=== PATIENT | male | born 1960 | race Caucasian/White ===

== ENCOUNTER 2016-12-18 09:53 | Inpatient (IN) | payer BC ==
[~2016-12-18] VITALS: Ht 195.6 cm; Wt 130.9 kg
[~2016-12-18 09:53] MED LIST: ASPIRIN 81M81 MG/TA2 PO; CIPRO 500MG TA500 MG PO; COQ10150 MG PO; KLOR-CON 1010 MEQ PO; NATURAL MAGNES200 MG PO; PRINZIDE 12.5 M1 TA1 PO; PYRIDIUM 100MG100 MG PO; VITAMIN D31000 IU PO; ZOCOR 40MG40 MG PO
[2017-03-18 10:00] LABS: HEMATOCRIT 43.4 % (42.0-52.0); HEMOGLOBIN 14.1 g/dl (13.5-18.0); MEAN CELL VOLUME 94 fl (80.0-100.0); MEAN CORPUSCULAR HEMOGLOBIN 31 pg (27.0-31.0); MEAN CORPUSCULAR HGB CONC 33 g/dl (33.0-37.0); MEAN PLATELET VOLUME 10.8 fl (7.4-10.4); PLATELET COUNT 214 K/mm3 (130-400); RED BLOOD COUNT 4.63 M/mm3 (4.20-5.60); WHITE BLOOD COUNT 7.2 K/mm3 (4.8-10.8)
[2017-03-18 10:06] LABS: PROTHROMBIN TIME 11.3 SECONDS (9.7-12.8)
[2017-03-18 10:08] LABS: PARTIAL THROMBOPLASTIN TIME 30.9 SECONDS (26.0-37.0)
[2017-03-18 10:46] LABS: CALCIUM 9.8 mg/dL (8.4-10.2); CREATININE, serum 0.67 mg/dL (0.66-1.25); POTASSIUM 4.2 mmol/L (3.4-5.0)
[2017-03-19] VITALS (12 sets, daily range): BP systolic 104–167; BP diastolic 52–87; PULSE 55–88; TEMP 97–98.7
[2017-03-19] MEDS ORDERED: LOPRESSOR 225 MG/TAB PO (07:01)
[2017-03-19 13:50] LABS: HEMATOCRIT 33.9 % (42.0-52.0); HEMOGLOBIN 10.9 g/dl (13.5-18.0)
[2017-03-20] VITALS (8 sets, daily range): BP systolic 97–129; BP diastolic 57–78; PULSE 64–72; TEMP 97.9–98.6
[2017-03-20 05:05] LABS: MEAN CELL VOLUME 93 fl (80.0-100.0); MEAN CORPUSCULAR HGB CONC 32 g/dl (33.0-37.0); MEAN PLATELET VOLUME 10.4 fl (7.4-10.4); PLATELET COUNT 154 K/mm3 (130-400); RED BLOOD COUNT 3.38 M/mm3 (4.20-5.60); REDCELL DISTRIBUTION WIDTH-CV 14.1 % (11.5-14.5); WHITE BLOOD COUNT 6.8 K/mm3 (4.8-10.8)
[2017-03-20 05:12] LABS: HEMATOCRIT 31.5 % (42.0-52.0); HEMOGLOBIN 10.2 g/dl (13.5-18.0); MEAN CORPUSCULAR HEMOGLOBIN 30 pg (27.0-31.0)
[2017-03-20 05:15] LABS: CALCIUM 8.1 mg/dL (8.4-10.2); CREATININE, serum 0.73 mg/dL (0.66-1.25); POTASSIUM 3.8 mmol/L (3.4-5.0)
[2017-03-21 02:08] VITALS: BP 150/53; PULSE 59; TEMP 98.2
[2017-03-21 05:53] VITALS: BP 120/58; PULSE 65; TEMP 98.6
[2017-03-21 08:27] VITALS: BP 120/64; PULSE 61; TEMP 98.5
[2017-03-21 13:57] VITALS: BP 114/61; PULSE 57; TEMP 98.1
== END 2017-03-21 17:45 | disposition home or self-care (01) | DRG 708 ==
LOC: SURG 01-08 07:30 → INPTSU 03-19 05:53 → SURG 03-19 05:53
PROVIDERS: Urology
PROC: 0VT00ZZ Resection of Prostate, Open Approach (ICD-10-PCS; principal; 2017-03-19 07:30)
DX: C61 Malignant neoplasm of prostate (principal); Z95.1 Presence of aortocoronary bypass graft; I10 Essential (primary) hypertension; F17.210 Nicotine dependence, cigarettes, uncomplicated; I25.10 Atherosclerotic heart disease of native coronary artery without angina pectoris
CPT/HCPCS: A9284; J0330; J0690; J2250; J2270; J2405; J2704; J2710; J3010; J3480; J7120

== ENCOUNTER 2017-04-19 12:11 | Observation (INO) | payer BC ==
[~2017-04-19] VITALS: Ht 195.6 cm; Wt 130.2 kg
[~2017-04-19 12:11] MED LIST changes: +LOPRESSOR 225 MG/TAB PO
[2017-04-19] MEDS ORDERED: COUMADIN 1010 MG/TAB PO (12:21)
[2017-04-19] MEDS ORDERED: ZOCOR 20MG20 MG PO (12:21)
[2017-04-19 13:36] LABS: BASO # 0.1 (0.0-0.2); BASO % 0.8 % (0.0-2.0); EOS # 0.4 (0.0-0.7); EOS % 3.8 % (0-4.0); GRAN # 6.5 (1.4-6.5); GRAN % 66.7 % (42.2-75.2); HEMATOCRIT 42.1 % (42.0-52.0); HEMOGLOBIN 13.8 g/dl (13.5-18.0); LYMPH # 1.9 (1.2-3.4); MEAN CELL VOLUME 91 fl (80.0-100.0); MEAN CORPUSCULAR HEMOGLOBIN 30 pg (27.0-31.0); MEAN CORPUSCULAR HGB CONC 33 g/dl (33.0-37.0); MEAN PLATELET VOLUME 11.1 fl (7.4-10.4); MONO # 0.9 (0.1-0.6); MONO % 9.3 % (1.7-9.3); PLATELET COUNT 197 K/mm3 (130-400); RED BLOOD COUNT 4.65 M/mm3 (4.20-5.60); REDCELL DISTRIBUTION WIDTH-CV 14.1 % (11.5-14.5); WHITE BLOOD COUNT 9.8 K/mm3 (4.8-10.8)
[2017-04-19 13:47] LABS: INR 1.6 (0.8-3.0); PROTHROMBIN TIME 18.4 SECONDS (9.7-12.8)
[2017-04-19 13:49] LABS: ADJUSTED CALCIUM 9.6 mg/dL (8.4-10.2); ALBUMIN 4.2 gm/dL (3.5-5.0); BILIRUBIN,TOTAL 0.7 mg/dL (0.0-1.0); CALCIUM 9.8 mg/dL (8.4-10.2); CREATININE, serum 0.72 mg/dL (0.66-1.25); POTASSIUM 4.4 mmol/L (3.4-5.0); TOTAL PROTEIN 7.6 gm/dL (6.4-8.2)
[2017-04-19] MEDS ORDERED: NORCO 325 MG-51 TAB PO (16:29)
[2017-04-19] MEDS ORDERED: VALIUM 10MG10 MG/TAB PO (16:30)
[2017-04-19 16:43] VITALS: BP 133/71; PULSE 62; TEMP 98.6
[2017-04-19 19:37] VITALS: BP 152/75; PULSE 61; TEMP 98
[2017-04-19 22:22] VITALS: BP 158/90; PULSE 54; TEMP 97.6
[2017-04-20] VITALS (13 sets, daily range): BP systolic 138–172; BP diastolic 71–89; PULSE 57–74; TEMP 98–98.5
[2017-04-20] MEDS ORDERED: XARELTO15 MG PO ×2 (14:21→14:40)
[2017-04-20] MEDS ORDERED: XARELTO20 MG PO (14:23)
== END 2017-04-20 17:38 | disposition home or self-care (01) ==
LOC: COL.ER 12:11 → MEDICAL 14:38
PROVIDERS: Emergency Medicine
DX: I82.412 Acute embolism and thrombosis of left femoral vein (principal); I82.432 Acute embolism and thrombosis of left popliteal vein; Z95.1 Presence of aortocoronary bypass graft; C61 Malignant neoplasm of prostate; I10 Essential (primary) hypertension; E78.5 Hyperlipidemia, unspecified; Z86.718 Personal history of other venous thrombosis and embolism; Z79.01 Long term (current) use of anticoagulants; F41.9 Anxiety disorder, unspecified; F17.210 Nicotine dependence, cigarettes, uncomplicated; E66.9 Obesity, unspecified; I25.10 Atherosclerotic heart disease of native coronary artery without angina pectoris
CPT/HCPCS: C1725; C1757; C1769; C1887; C1894; G0378; J0360; J1644; J2250; J2997; J3010; J7030; Q9967

== ENCOUNTER 2017-05-08 14:41 | Inpatient (IN) | payer BC ==
[~2017-05-08] VITALS: Ht 182.9 cm; Wt 130.1 kg
[~2017-05-08 14:41] MED LIST changes: +COUMADIN 1010 MG/TAB PO; +NORCO 325 MG-51 TAB PO; +VALIUM 10MG10 MG/TAB PO; +XARELTO15 MG PO; +XARELTO20 MG PO; +ZOCOR 20MG20 MG PO
[2017-05-08 15:03] LABS: BASO # 0.1 (0.0-0.2); BASO % 1.1 % (0.0-2.0); EOS # 0.2 (0.0-0.7); EOS % 2.6 % (0-4.0); GRAN # 3.4 (1.4-6.5); HEMATOCRIT 40.3 % (42.0-52.0); HEMOGLOBIN 12.8 g/dl (13.5-18.0); LYMPH # 1.9 (1.2-3.4); LYMPH % 31.3 % (20.0-51.0); MEAN CELL VOLUME 92 fl (80.0-100.0); MEAN CORPUSCULAR HEMOGLOBIN 29 pg (27.0-31.0); MEAN CORPUSCULAR HGB CONC 32 g/dl (33.0-37.0); MEAN PLATELET VOLUME 10.6 fl (7.4-10.4); MONO # 0.5 (0.1-0.6); MONO % 8.7 % (1.7-9.3); PLATELET COUNT 242 K/mm3 (130-400); WHITE BLOOD COUNT 6.1 K/mm3 (4.8-10.8)
[2017-05-08 15:13] LABS: CREATININE, serum 0.69 mg/dL (0.66-1.25); INR 1.7 (0.8-3.0); PROTHROMBIN TIME 19.4 SECONDS (9.7-12.8)
[2017-05-08] MEDS ORDERED: XARELTO15 MG PO (16:14)
[2017-05-08 16:18] VITALS: BP 165/92; PULSE 47
[2017-05-08 17:44] VITALS: BP 169/88; PULSE 50; TEMP 98.4
[2017-05-08] MEDS ORDERED: AMOXICILLIN 50500 MG PO (18:40)
[2017-05-08 20:50] VITALS: BP 147/83; PULSE 52; TEMP 98.2
[2017-05-09 00:38] VITALS: BP 140/76; PULSE 50; TEMP 97.6
[2017-05-09 03:53] VITALS: BP 125/53; PULSE 70; TEMP 97.7
[2017-05-09 07:23] LABS: BASO # 0.1 (0.0-0.2); BASO % 1.3 % (0.0-2.0); EOS # 0.2 (0.0-0.7); GRAN # 3.7 (1.4-6.5); GRAN % 61.5 % (42.2-75.2); HEMATOCRIT 40.5 % (42.0-52.0); LYMPH # 1.5 (1.2-3.4); LYMPH % 25.5 % (20.0-51.0); MEAN CELL VOLUME 91 fl (80.0-100.0); MEAN CORPUSCULAR HEMOGLOBIN 29 pg (27.0-31.0); MEAN CORPUSCULAR HGB CONC 32 g/dl (33.0-37.0); MEAN PLATELET VOLUME 11.3 fl (7.4-10.4); MONO # 0.5 (0.1-0.6); MONO % 8.4 % (1.7-9.3); PLATELET COUNT 242 K/mm3 (130-400); RED BLOOD COUNT 4.47 M/mm3 (4.20-5.60)
[2017-05-09 07:40] VITALS: BP 147/78; PULSE 50; TEMP 97.6
[2017-05-09 07:40] LABS: CALCIUM 9.6 mg/dL (8.4-10.2); CREATININE, serum 0.75 mg/dL (0.66-1.25)
[2017-05-09 12:23] VITALS: BP 122/80; PULSE 52; TEMP 98.5
== END 2017-05-09 13:29 | disposition home or self-care (01) | DRG 254 ==
LOC: MEDICAL 14:41
PROVIDERS: Physician Assistant; Radiology Diagnostic Radiology
PROC: 06H03DZ Insertion of Intraluminal Device into Inferior Vena Cava, Percutaneous Approach (ICD-10-PCS; principal; 2017-05-08)
DX: I82.4Z2 Acute embolism and thrombosis of unspecified deep veins of left distal lower extremity (principal); I10 Essential (primary) hypertension; E78.5 Hyperlipidemia, unspecified; F17.210 Nicotine dependence, cigarettes, uncomplicated; R31.9 Hematuria, unspecified; Z95.1 Presence of aortocoronary bypass graft; Z85.46 Personal history of malignant neoplasm of prostate; Z79.01 Long term (current) use of anticoagulants
CPT/HCPCS: 99222-AI; 99232-AI; 99239; J2250; J3010; Q9967

== ENCOUNTER 2018-06-10 00:01 | Inpatient (IN) | payer BC ==
[~2018-06-10] VITALS: Ht 198.1 cm; Wt 132.9 kg
[2018-06-10] VITALS (794 sets, daily range): BP systolic 144–174; BP diastolic 87–106; PULSE 52–76; TEMP 97.5–99.2; O2SAT 60–100
[~2018-06-10 00:01] MED LIST changes: +AMOXICILLIN 50500 MG PO
[2018-06-10 00:21] LABS: BASO # 0.1 (0.0-0.2); BASO % 0.8 % (0.0-2.0); EOS # 0.2 (0.0-0.7); GRAN # 6.3 (1.4-6.5); GRAN % 70.6 % (42.2-75.2); HEMATOCRIT 47.1 % (42.0-52.0); HEMOGLOBIN 15.8 g/dl (13.5-18.0); LYMPH # 1.7 (1.2-3.4); LYMPH % 19.1 % (20.0-51.0); MEAN CELL VOLUME 93 fl (80.0-100.0); MEAN CORPUSCULAR HEMOGLOBIN 31 pg (27.0-31.0); MEAN CORPUSCULAR HGB CONC 34 g/dl (33.0-37.0); MEAN PLATELET VOLUME 10.7 fl (7.4-10.4); MONO # 0.7 (0.1-0.6); MONO % 7.3 % (1.7-9.3); PLATELET COUNT 197 K/mm3 (130-400); RED BLOOD COUNT 5.08 M/mm3 (4.20-5.60); REDCELL DISTRIBUTION WIDTH-CV 13.2 % (11.5-14.5)
[2018-06-10 00:46] LABS: ALBUMIN 4.3 gm/dL (3.5-5.0); BILIRUBIN,TOTAL 0.3 mg/dL (0.0-1.0); CALCIUM 10.2 mg/dL (8.4-10.2); CREATININE, serum 0.64 mg/dL (0.66-1.25); TOTAL PROTEIN 7.6 gm/dL (6.4-8.2)
[2018-06-10 00:46] LABS: INR 1.1 (0.8-3.0)
[2018-06-10 00:48] LABS: PARTIAL THROMBOPLASTIN TIME 39.5 SECONDS (26.0-37.0)
[2018-06-10] MEDS ORDERED: FLEXERIL 1010 MG/TAB PO (00:51)
[2018-06-10] MEDS ORDERED: COZAAR100 MG PO (00:52)
[2018-06-10] MEDS ORDERED: LOPRESSOR 550 MG/TAB PO (00:53)
[2018-06-10 01:06] LABS: TROPONIN-I 0.943 ng/mL (0.000-0.034)
[2018-06-10 03:55] LABS: BASO # 0.1 (0.0-0.2); BASO % 0.8 % (0.0-2.0); EOS # 0.2 (0.0-0.7); EOS % 1.7 % (0-4.0); GRAN # 6.3 (1.4-6.5); GRAN % 70.2 % (42.2-75.2); HEMATOCRIT 45.2 % (42.0-52.0); HEMOGLOBIN 14.9 g/dl (13.5-18.0); LYMPH # 1.9 (1.2-3.4); LYMPH % 20.8 % (20.0-51.0); MEAN CELL VOLUME 94 fl (80.0-100.0); MEAN CORPUSCULAR HEMOGLOBIN 31 pg (27.0-31.0); MEAN CORPUSCULAR HGB CONC 33 g/dl (33.0-37.0); MEAN PLATELET VOLUME 10.6 fl (7.4-10.4); MONO # 0.6 (0.1-0.6); MONO % 6.2 % (1.7-9.3); PLATELET COUNT 206 K/mm3 (130-400); RED BLOOD COUNT 4.81 M/mm3 (4.20-5.60); REDCELL DISTRIBUTION WIDTH-CV 13.3 % (11.5-14.5)
[2018-06-10 03:59] LABS: CALCIUM 9.7 mg/dL (8.4-10.2); CREATININE, serum 0.69 mg/dL (0.66-1.25); POTASSIUM 4.7 mmol/L (3.4-5.0)
[2018-06-10 04:10] LABS: TROPONIN-I 3 HR POST INITIAL 3.99 ng/mL (0.000-0.034)
[2018-06-10 09:18] LABS: CHOLESTEROL RISK RATIO 5.3
[2018-06-11] VITALS (435 sets, daily range): BP systolic 111–152; BP diastolic 70–90; PULSE 65–103; TEMP 97.8–99.2; O2SAT 93–100
[2018-06-11 06:07] LABS: BASO # 0.1 (0.0-0.2); BASO % 0.5 % (0.0-2.0); EOS # 0.1 (0.0-0.7); EOS % 0.9 % (0-4.0); GRAN # 7.9 (1.4-6.5); GRAN % 72.3 % (42.2-75.2); HEMOGLOBIN 15.4 g/dl (13.5-18.0); LYMPH # 1.7 (1.2-3.4); LYMPH % 15.9 % (20.0-51.0); MEAN CELL VOLUME 92 fl (80.0-100.0); MEAN CORPUSCULAR HEMOGLOBIN 31 pg (27.0-31.0); MEAN CORPUSCULAR HGB CONC 34 g/dl (33.0-37.0); MEAN PLATELET VOLUME 10.8 fl (7.4-10.4); MONO # 1.1 (0.1-0.6); MONO % 9.9 % (1.7-9.3); PLATELET COUNT 192 K/mm3 (130-400); RED BLOOD COUNT 4.98 M/mm3 (4.20-5.60); REDCELL DISTRIBUTION WIDTH-CV 13.2 % (11.5-14.5)
[2018-06-11 06:26] LABS: CALCIUM 9.4 mg/dL (8.4-10.2); CREATININE, serum 0.66 mg/dL (0.66-1.25); POTASSIUM 4.1 mmol/L (3.4-5.0)
[2018-06-11 06:45] LABS: TROPONIN-I 18.8 ng/mL (0.000-0.034)
[2018-06-11] MEDS ORDERED: RANEXA 500MG T500 MG PO (09:37)
[2018-06-11] MEDS ORDERED: BRILINTA90 MG PO (09:37)
[2018-06-11] MEDS ORDERED: LIPITOR 80MG80 MG PO (09:38)
[2018-06-11] MEDS ORDERED: ISOSORBIDE MON120 MG PO (09:38)
[2018-06-11] MEDS ORDERED: ASPIRIN 81M81 MG/TA2 PO (09:39)
== END 2018-06-11 13:00 | disposition home or self-care (01) | DRG 247 ==
LOC: COL.ER 00:01 → ICU 02:08
PROVIDERS: Emergency Medicine; Hospitalist; Nurse Practitioner
PROC: B2111ZZ Fluoroscopy of Multiple Coronary Arteries using Low Osmolar Contrast (ICD-10-PCS; principal; 2018-06-10)
PROC: 027034Z Dilation of Coronary Artery, One Artery with Drug-eluting Intraluminal Device, Percutaneous Approach (ICD-10-PCS; 2018-06-10)
PROC: 02703ZZ Dilation of Coronary Artery, One Artery, Percutaneous Approach (ICD-10-PCS; 2018-06-10)
DX: I21.4 Non-ST elevation (NSTEMI) myocardial infarction (principal); I25.10 Atherosclerotic heart disease of native coronary artery without angina pectoris; I10 Essential (primary) hypertension; E78.5 Hyperlipidemia, unspecified; Z95.5 Presence of coronary angioplasty implant and graft; Z85.46 Personal history of malignant neoplasm of prostate; Z86.718 Personal history of other venous thrombosis and embolism; Z79.01 Long term (current) use of anticoagulants; Z95.820 Peripheral vascular angioplasty status with implants and grafts; F17.210 Nicotine dependence, cigarettes, uncomplicated; G47.33 Obstructive sleep apnea (adult) (pediatric); R73.9 Hyperglycemia, unspecified
CPT/HCPCS: 99222-AI; 99239; J0583; J1644; J2250; J2270; J3010; J7030; Q9967